=== PATIENT | male | born 1990 | race Caucasian/White ===

== ENCOUNTER 2019-03-17 12:52 | Emergency (ER) | payer BC ==
--- NOTE | 2019-03-17 13:12 | EDM.PDOC ---
ED HPI GENERAL MEDICAL PROBLEM - General Chief Complaint: Genitourinary Problem Stated Complaint: KIDNEY STONE? Time Seen by Provider: 03/17/19 13:05 Source of Information: Reports: Patient, RN History Limitations: Reports: No Limitations - History of Present Illness INITIAL COMMENTS - FREE TEXT/NARRATIVE: 28 yr male presents with feeling like kidney stone to the right back, started last night. States kidney stones in the past and has been to ER for this. States he hasn't had the stones sent for analysis and hasn't had them screened in the past. States he has a history of kidney disease. He has annually nephrology check-ups. - Related Data Allergies Allergy/AdvReac Type Severity Reaction Status Date / Time NSAIDS (Non-Steroidal Allergy Other Verified 03/17/19 13:26 Anti-Inflamma Home Meds: Home Meds Divalproex Sodium [Depakote] 1,500 mg PO BID 02/16/16 [History] hydroCHLOROthiazide [Hydrochlorothiazide] 12.5 mg PO DAILY 03/17/19 [History] Past Medical History Cardiovascular History: Reports: Other (See Below) Other Cardiovascular History: Patient has another occurance of elevated blood pressure. Genitourinary History: Reports: Renal Calculus Musculoskeletal History: Reports: Other (See Below) Other Musculoskeletal History: Dislocation of right ankle with bone fragments Neurological History: Reports: Other (See Below) Other Neuro History: Epilepsy - Infectious Disease History Infectious Disease History: Reports: Chicken Pox, Influenza Social & Family History - Caffeine Use Caffeine Use: Reports: None ED ROS GENERAL - Review of Systems Review Of Systems: See Below Constitutional: Reports: No Symptoms HEENT: Reports: No Symptoms Respiratory: Reports: No Symptoms Cardiovascular: Reports: No Symptoms Endocrine: Reports: No Symptoms GI/Abdominal: Denies: Abdominal Pain, Decreased Appetite : Denies: Dysuria, Frequency, Hematuria, Pain Musculoskeletal: Reports: Back Pain (right lower back pain) Skin: Reports: No Symptoms Neurological: Reports: No Symptoms Psychiatric: Reports: No Symptoms ED EXAM, RENAL/ - Physical Exam Exam: See Below Exam Limited By: No Limitations General Appearance: Alert, No Apparent Distress Ears: Hearing Grossly Normal Nose: Normal Inspection Throat/Mouth: Normal Inspection, Normal Voice, No Airway Compromise Head: Atraumatic, Normocephalic Neck: Supple, Non-Tender, Full Range of Motion Respiratory/Chest: No Respiratory Distress, Lungs Clear, Normal Breath Sounds Cardiovascular: Regular Rate, Rhythm GI/Abdominal: Soft, Non-Tender Back Exam: Normal Inspection, Full Range of Motion. No: Vertebral Tenderness Extremities: Normal Inspection, Normal Range of Motion Neurological: Alert, Oriented, Normal Cognition, Normal Gait Psychiatric: Normal Affect, Normal Mood Skin Exam: Warm, Dry, Normal Color Course - Vital Signs Last Recorded V/S: Last Vital Signs Temp 97.6 F 03/17/19 15:16 Pulse 74 03/17/19 15:16 Resp 18 03/17/19 15:16 BP 131/88 03/17/19 15:16 Pulse Ox 99 03/17/19 15:16 - Orders/Labs/Meds Labs: Laboratory Tests 03/17/19 03/17/19 03/17/19 Range/Units 13:15 13:15 13:15 WBC 7.5 D (4.0-11.0) K/uL RBC 5.37 (4.50-6.50) M/uL Hgb 16.8 (13.0-18.0) g/dL Hct 47.9 (40.0-54.0) % MCV 89 (76-96) fL MCH 31.3 (27.0-32.0) pg MCHC 35.1 H (31.0-35.0) g/dL RDW 12.8 (11.0-16.0) % Plt Count 219 (150-400) K/uL MPV 10.3 H (6.0-10.0) fL Neut % (Auto) 57.6 (45.0-70.0) % Lymph % (Auto) 33.3 (20.0-40.0) % [place] % (Auto) 6.1 (3.0-10.0) % Eos % (Auto) 2.9 (1.0-5.0) % Baso % (Auto) 0.1 (0.0-0.5) % Neut # (Auto) 4.34 (2.00-7.50) K/uL Lymph # (Auto) 2.51 (1.50-4.00) K/uL [place] # (Auto) 0.46 (0.20-0.80) K/uL Eos # (Auto) 0.22 (0.04-0.40) K/uL Baso # (Auto) 0.01 L (0.02-0.10) K/uL Sodium 144 (136-145) mmol/L Potassium 4.3 (3.5-5.1) mmol/L Chloride 106 (98-107) mmol/L Carbon Dioxide 27.5 (21.0-32.0) mmol/L Anion Gap 14.8 (5.0-15.0) mmol/L BUN 20 (8-26) mg/dL Creatinine 1.29 (0.70-1.30) mg/dL Est Cr Clr Drug Dosing TNP Estimated GFR (MDRD) > 60 (>60) MLS/MIN BUN/Creatinine Ratio 15.5 (6-25) Glucose 95 (74-100) mg/dL Calcium 8.9 (8.5-10.1) mg/dL Total Bilirubin 0.8 D (0.0-1.0) mg/dL AST 17 (15-37) U/L ALT 26 (12-78) U/L Alkaline Phosphatase 37 L (46-116) U/L Total Protein 7.0 (6.4-8.2) g/dL Albumin 3.8 (3.4-5.0) g/dL Globulin 3.2 (2.2-4.2) g/dL Albumin/Globulin Ratio 1.2 (0.8-2.0) Urine Color Yellow Urine Appearance Clear (CLEAR) Urine pH 6.5 (5.0-8.0) Ur Specific [place] 1.020 (1.003-1.030) Urine Protein Negative (NEGATIVE) mg/dL Urine Glucose (UA) Negative (NEGATIVE) mg/dL Urine Ketones Negative (NEGATIVE) mg/dL Urine Occult Blood Negative (NEGATIVE) Urine Nitrite Negative (NEGATIVE) Urine Bilirubin Negative (NEGATIVE) Urine Urobilinogen 0.2 (0.2-1.0) E.U./dL Ur Leukocyte Esterase Negative (NEGATIVE) Urine RBC Not seen /HPF Urine WBC Not seen /HPF Ur Squamous Epith Cells Rare /HPF - Re-Assessments/Exams Free Text/Narrative Re-Assessment/Exam: 03/17/19 22:14 LE Reviewed lab results and CT result with pt and mother. Small nonobstructing kidney stone to left side. No hematuria, no elevated WBC. Creatinine 1.29. Recommend rest and Tylenol as needed. Rx for Hydrocodone/APAP 5/325mg, 1 tablet , PO every 4-6 hour prn pain, disp #20. Will order renal U/S tomorrow. Pt and mother would like this order for Sandip, as mother lives in [place] and PCP is in [place]. Strain urine and return any gravel to PCP for possible analysis. Discussed diet to prevent increase in kidney stones and increase of fluids of 8 glasses of water daily. RTC or ER if symptoms persist or worsen. Departure - Departure Time of Disposition: 15:26 Disposition: Home, Self-Care 01 Condition: Good Clinical Impression: Kidney stone - Discharge Information *PRESCRIPTION DRUG MONITORING PROGRAM REVIEWED*: Not Applicable *COPY OF PRESCRIPTION DRUG MONITORING REPORT IN PATIENT LOUIE: Not Applicable Instructions: Kidney Stones Referrals: PCP,None [Primary Care Provider] - Forms: ED Department Discharge Additional Instructions: Follow up with US tomorrow. Increase fluid intake. Take Hydrocodone 5/325 every 4-6 hours as needed for pain. - Assessment/Plan Plan: Reviewed lab results and CT result with pt and mother. Small nonobstructing kidney stone to left side. No hematuria, no elevated WBC. Creatinine 1.29. Recommend rest and Tylenol as needed. Rx for Hydrocodone/APAP 5/325mg, 1 tablet , PO every 4-6 hour prn pain, disp #20. Will order renal U/S tomorrow. Pt and mother would like this order for Sandip, as mother lives in [place] and PCP is in [place]. Strain urine and return any gravel to PCP for possible analysis. Discussed diet to prevent increase in kidney stones and increase of fluids of 8 glasses of water daily. RTC or ER if symptoms persist or worsen.
[2019-03-17 15:30] VITALS: BP 131/88
--- NOTE | 2019-03-17 19:51 | CT ---
DATE OF SERVICE: 03/17/19 CLINICAL DATA: possible kidney stone UNENHANCED ABDOMEN AND PELVIC CT: Multislice acquisition through the abdomen and pelvis without IV or oral contrast was performed. Comparison is made to a prior exam dated 07/11/18. The lung bases are clear. The liver, gallbladder, spleen, pancreas, and right and left adrenals appear normal. There is a 4 mm nonobstructing renal calculus in the lower pole of the left kidney. There is a 2 mm distal ureteral calculus on the left located in the distal left ureter just proximal to the ureterovesical junction. No hydronephrosis or hydroureter proximal to it. The kidneys and collecting systems otherwise appear normal. The bladder is partially fluid-filled. It appears normal. The appendix is not dilated. No evidence of appendicitis. There is a moderate amount of stool present throughout the colon and rectum. There is a small umbilical hernia containing fat. There are small fat- containing inguinal hernias bilaterally. No free air, no free fluid. No dilated loops of bowel. No adenopathy. No aortic aneurysm. IMPRESSION: A 2 mm distal ureteral calculus on the left without hydronephrosis or hydroureter. Multiple other findings as discussed above. [id number] [facility]
== END 2019-03-17 15:26 | disposition home or self-care (01) ==
LOC: LB.ED 12:52
DX: N20.2 Calculus of kidney with calculus of ureter (principal); Z88.6 Allergy status to analgesic agent; Z79.899 Other long term (current) drug therapy
CPT/HCPCS: 36415; 74176; 80053; 81001; 85025; 99283-25

== ENCOUNTER 2021-07-08 04:26 | Emergency (ER) | payer BC ==
[2021-07-08] MEDS ORDERED: Ondansetron 4 MG Tab.DIS PO ONE (04:46)
[2021-07-08 05:06] VITALS: PULSE 83
[2021-07-08 05:07] VITALS: BP 154/103
[2021-07-08] MEDS ORDERED: Morphine 2 MG/ML SYRINGE IVPUSH ONE (05:25)
--- NOTE | 2021-07-08 05:25 | EDM.PDOC ---
ED HPI GENERAL MEDICAL PROBLEM - General Chief Complaint: Flank Pain Stated Complaint: POSSIBLE KIDNEY STONE Time Seen by Provider: 07/08/21 05:05 Source of Information: Reports: Patient History Limitations: Reports: No Limitations - History of Present Illness INITIAL COMMENTS - FREE TEXT/NARRATIVE: patient presented to the ER with a c/o Right flank pain for 2-3 hrs duration. Sudden onset. Flank pain radiating to the right groin. h/o multiple kidney stones in the past. no Fever or chills. Mild nausea but no emesis. no CP or SOB. last kidney stone was a year ago - usually pass them on his own. Treatments TRANSCRIPTION TYPIST: Reports: Acetaminophen - Related Data Allergies Allergy/AdvReac Type Severity Reaction Status Date / Time NSAIDS (Non-Steroidal Allergy Other Verified 03/17/19 13:26 Anti-Inflamma Home Meds: Home Meds Divalproex Sodium [Depakote] 1,000 mg PO BID 02/16/16 [History] Tamsulosin HCl [Flomax] 0.4 mg PO DAILY #14 cap.er.24h 07/08/21 [Rx] Past Medical History Cardiovascular History: Reports: Other (See Below) Other Cardiovascular History: Patient has another occurance of elevated blood pressure. Genitourinary History: Reports: Renal Calculus Musculoskeletal History: Reports: Other (See Below) Other Musculoskeletal History: Dislocation of right ankle with bone fragments Neurological History: Reports: Other (See Below) Other Neuro History: Epilepsy - Infectious Disease History Infectious Disease History: Reports: Chicken Pox, Influenza Social & Family History - Family History Family Medical History: No Pertinent Family History - Tobacco Use Tobacco Use Status *Q: Never Tobacco User - Caffeine Use Caffeine Use: Reports: Energy Drinks - Alcohol Use Days Per Week of Alcohol Use: 2 Number of Drinks Per Day: 2 Total Drinks Per Week: 4 - Recreational Drug Use Recreational Drug Use: No ED ROS GENERAL - Review of Systems Review Of Systems: See Below Constitutional: Reports: No Symptoms HEENT: Reports: No Symptoms Respiratory: Reports: No Symptoms Cardiovascular: Reports: No Symptoms GI/Abdominal: Reports: No Symptoms : Reports: Flank Pain Musculoskeletal: Reports: No Symptoms Neurological: Reports: No Symptoms Psychiatric: Reports: No Symptoms ED EXAM, RENAL/ - Physical Exam Exam: See Below Exam Limited By: No Limitations General Appearance: Alert, WD/WN, No Apparent Distress Eye Exam: Bilateral Eye: EOMI Head: Atraumatic Respiratory/Chest: No Respiratory Distress Cardiovascular: Normal Peripheral Pulses GI/Abdominal: Normal Bowel Sounds, Soft, Non-Tender Back Exam: CVA Tenderness (R) Neurological: Alert, Oriented, No Motor/Sensory Deficits Psychiatric: Normal Affect Course - Vital Signs Last Recorded V/S: Last Vital Signs Temp 35.8 C L 07/08/21 04:30 Pulse 83 07/08/21 04:40 Resp 18 07/08/21 04:30 BP 154/103 H 07/08/21 05:06 Pulse Ox 95 07/08/21 04:40 - Orders/Labs/Meds Orders: Active Orders 24 hr Category Date Time Status Sodium Chloride 0.9% [Normal Saline] 1,000 ml Med 07/08/21 05:30 Active IV ASDIRECTED Medication Orders Sodium Chloride (Normal Saline) 1,000 mls @ 999 mls/hr IV ASDIRECTED FELIZ Last Admin: 07/08/21 05:35 Dose: 999 mls/hr Documented by: LORENA Labs: Laboratory Tests 07/08/21 07/08/21 07/08/21 Range/Units 04:50 04:50 04:50 WBC 9.6 D (4.0-11.0) K/uL RBC 5.12 (4.50-6.50) M/uL Hgb 15.8 (13.0-18.0) g/dL Hct 44.4 (40.0-54.0) % MCV 87 (76-96) fL MCH 30.9 (27.0-32.0) pg MCHC 35.6 H (31.0-35.0) g/dL RDW 12.5 (11.0-16.0) % Plt Count 224 (150-400) K/uL MPV 10.1 H (6.0-10.0) fL Neut % (Auto) 56.7 (45.0-70.0) % Lymph % (Auto) 33.3 (20.0-40.0) % [place] % (Auto) 7.4 (3.0-10.0) % Eos % (Auto) 2.4 (1.0-5.0) % Baso % (Auto) 0.2 (0.0-0.5) % Neut # (Auto) 5.41 (2.00-7.50) K/uL Lymph # (Auto) 3.18 (1.50-4.00) K/uL [place] # (Auto) 0.71 (0.20-0.80) K/uL Eos # (Auto) 0.23 (0.04-0.40) K/uL Baso # (Auto) 0.02 (0.02-0.10) K/uL Sodium 142 (136-145) mmol/L Potassium 3.9 (3.5-5.1) mmol/L Chloride 107 (98-107) mmol/L Carbon Dioxide 28.8 (21.0-32.0) mmol/L Anion Gap 10.1 (5.0-15.0) mmol/L BUN 22 (8-26) mg/dL Creatinine 1.62 H D (0.70-1.30) mg/dL Est Cr Clr Drug Dosing 74.51 mL/min Estimated GFR (MDRD) 51 L (>60) MLS/MIN BUN/Creatinine Ratio 13.6 (6-25) Glucose 117 H (74-100) mg/dL Calcium 9.5 (8.5-10.1) mg/dL Urine Color Yellow Urine Appearance Slightly cloudy (CLEAR) Urine pH 6.0 (5.0-8.0) Ur Specific [place] >= 1.030 (1.003-1.030) Urine Protein Negative (NEGATIVE) mg/dL Urine Glucose (UA) Negative (NEGATIVE) mg/dL Urine Ketones Negative (NEGATIVE) mg/dL Urine Occult Blood Large H (NEGATIVE) Urine Nitrite Negative (NEGATIVE) Urine Bilirubin Negative (NEGATIVE) Urine Urobilinogen 0.2 (0.2-1.0) E.U./dL Ur Leukocyte Esterase Negative (NEGATIVE) Urine RBC >100 H /HPF Urine WBC 0-5 H /HPF Ur Squamous Epith Cells Occasional /HPF Meds: Medications Generic Name Dose Route Start Last Admin Trade Name Freq PRN Reason Stop Dose Admin Sodium Chloride 1,000 mls @ 999 mls/hr 07/08/21 05:30 07/08/21 05:35 Normal Saline IV 999 mls/hr ASDIRECTED FELIZ Administration Discontinued Medications Generic Name Dose Route Start Last Admin Trade Name Freq PRN Reason Stop Dose Admin Morphine Sulfate 2 mg 07/08/21 05:25 07/08/21 05:41 Morphine 2 Mg/Ml Syringe IVPUSH 07/08/21 05:26 2 mg ONETIME ONE Administration Ondansetron HCl 4 mg 07/08/21 04:46 07/08/21 04:53 Ondansetron 4 Mg Tab.Dis PO 07/08/21 04:47 4 mg ONETIME ONE Administration - Re-Assessments/Exams Free Text/Narrative Re-Assessment/Exam: labs were ordered UA ++ RBC no leukocytosis BMP has elevated Cr. Patient reports that is known for him. IV morphine for pain control IVF was started feeling better - pain resolved patient elected not to have a CT scan - since he passed the stones in the past - but will return to the ER if pain didn't resolve to get the CT scan . Departure - Departure Time of Disposition: 07:14 Disposition: Home, Self-Care 01 Clinical Impression: Kidney stone, Renal calculus, right - Discharge Information *PRESCRIPTION DRUG MONITORING PROGRAM REVIEWED*: Not Applicable *COPY OF PRESCRIPTION DRUG MONITORING REPORT IN PATIENT LOUIE: Not Applicable Prescriptions: Tamsulosin HCl [Flomax] 0.4 mg PO DAILY #14 cap.er.24h Instructions: Kidney Stones, [id number] Forms: ED Department Discharge Additional Instructions: - Increase fluids intake to 3-4 lit a day - take pain medications as needed for pain control - return to the ER if symptoms got worse or any concerns - follow up with your PCP in 3-10 days as needed if pain got worse Sepsis Event Note (ED) - Evaluation Sepsis Screening Result: No Definite Risk - Focused Exam Vital Signs: Vital Signs Temp Pulse Resp BP Pulse Ox 07/08/21 05:06 154/103 H 07/08/21 04:40 83 95 07/08/21 04:30 35.8 C L 74 18 160/104 H 96 - Problem List & Annotations (1) Kidney stone SNOMED Code(s): 60412341 Code(s): N20.0 - CALCULUS OF KIDNEY Status: Acute Priority: Low (2) Renal calculus, right SNOMED Code(s): 25752841 Code(s): N20.0 - CALCULUS OF KIDNEY Status: Acute Priority: Low Onset Date: ~07/08/21 - Problem List Review Problem List Initiated/Reviewed/Updated: Yes - My Orders Last 24 Hours: My Active Orders 07/08/21 05:30 Sodium Chloride 0.9% [Normal Saline] 1,000 ml IV ASDIRECTED - Assessment/Plan Last 24 Hours: My Active Orders 07/08/21 05:30 Sodium Chloride 0.9% [Normal Saline] 1,000 ml IV ASDIRECTED Plan: - Increase fluids intake to 3-4 lit a day - take pain medications as needed for pain control - return to the ER if symptoms got worse or any concerns - follow up with your PCP in 3-10 days as needed if pain got worse
[2021-07-08] MEDS ORDERED: Sodium Chloride 0.9% 1,000 ML IV SCH (05:30)
[2021-07-08] MEDS ORDERED: Acetaminophen/HYDROcodone 325-5 MG Tab ONE (06:30)
== END 2021-07-08 07:00 | disposition home or self-care (01) ==
LOC: LB.ED 04:26
DX: N20.0 Calculus of kidney (principal); Z88.6 Allergy status to analgesic agent
CPT/HCPCS: 36415; 80048; 81001; 85025; 96374; 99283-25; A9270-GY; J2270; J7030

== ENCOUNTER 2023-04-09 15:22 | Emergency (ER) | payer BC, OTHER ==
[2023-04-09 16:23] LABS: HEMATOCRIT 43.2 % (40.0-54.0); HEMOGLOBIN 14.9 g/dL (13.0-18.0); MEAN CORPUSCULAR HEMOGLOBIN 29.4 pg (27.0-32.0); MEAN CORPUSCULAR HGB CONC 34.5 g/dL (31.0-35.0); MEAN PLATELET VOLUME 9.5 fL (6.0-10.0); RED BLOOD CELL COUNT 5.07 M/uL (4.50-6.50); RED CELL DISTRIBUTION WIDTH 13.3 % (11.0-16.0); WHITE BLOOD CELL COUNT,WBC 10.5 K/uL (4.0-11.0)
[2023-04-09 16:31] LABS: APPEARANCE,URINE CLEAR (CLEAR); BILIRUBIN,URINE SMALL (NEGATIVE); COLOR,URINE YELLOW; GLUCOSE,URINE NEGATIVE (NEGATIVE); KETONES,URINE NEGATIVE (NEGATIVE); LEUKOCYTE ESTERASE,URINE NEGATIVE (NEGATIVE); NITRITE,URINE NEGATIVE (NEGATIVE); OCCULT BLOOD,URINE NEGATIVE (NEGATIVE); PROTEIN,URINE TRACE mg/dL (NEGATIVE)
[2023-04-09 16:39] LABS: RBC,URINE 0-5 /HPF; WBC,URINE 0-5 /HPF
[2023-04-09 16:43] LABS: A/G RATIO 0.9 (0.8-2.0); ALANINE AMINOTRANSFERASE,ALT 285 U/L (12-78); ALKALINE PHOSPHATASE 58 U/L (46-116); ANION GAP 12.4 mmol/L (5.0-15.0); ASPARTATE AMNIOTRANSFERASE,AST 93 U/L (15-37); BILIRUBIN TOTAL 0.7 mg/dL (0.0-1.0); BLOOD UREA NITROGEN,BUN 8 mg/dL (8-26); BUN/CREATININE RATIO 5.8 (6-25); CALCIUM 8.4 mg/dL (8.5-10.1); CARBON DIOXIDE,CO2 25.7 mmol/L (21.0-32.0); CHLORIDE,CL 106 mmol/L (98-107); CREATININE 1.39 mg/dL (0.70-1.30); ESTIMATED GFR 70 mL/min (>60); GLUCOSE RANDOM 100 mg/dL (74-100); POTASSIUM,K 4.1 mmol/L (3.5-5.1); PROTEIN TOTAL,TP 6.5 g/dL (6.4-8.2); SODIUM,NA 140 mmol/L (136-145)
[2023-04-09 17:03] VITALS: BP 122/88; PULSE 104
[2023-04-09] MEDS ORDERED: methylPREDNISolone Sodium Succinate 40 MG/1 ML SDV IM ONE (17:24)
== END 2023-04-09 17:42 | disposition home or self-care (01) ==
LOC: LB.ED 15:22
DX: K75.81 Nonalcoholic steatohepatitis (NASH) (principal); R74.8 Abnormal levels of other serum enzymes; R79.1 Abnormal coagulation profile; Z88.6 Allergy status to analgesic agent
CPT/HCPCS: 36415; 80053; 81001; 85027; 96372; 99283; J2920